=== PATIENT | female | born 1945 | race Caucasian/White ===

== ENCOUNTER 2018-09-15 11:31 | Inpatient (IN) ==
[2018-09-15 19:08] LABS: BASO# 0.06 X1000 (0.0-0.2); BASO% 0.5 % (0.0-0.8); EOS# 0.06 X1000 (0.0-0.7); EOS% 0.5 % (0.0-10.0); HEMATOCRIT 41.5 % (37.0-47.0); HEMOGLOBIN 13.8 g/dL (12.0-16.0); IMM GRAN# 0.05 X1000 (0.0-0.04); IMM GRAN% 0.5 % (0.0-0.5); LYMPH# 3.23 X1000 (1.2-3.4); LYMPH% 29.3 % (20.5-51.1); MCH 27.5 PG (27-31); MCHC 33.3 g/dL (33-37); MCV 82.7 FL (81-99); MONO# 0.62 X1000 (0.11-0.59); MONO% 5.6 % (1.7-9.3); MPV 10.1 FL (7.4-10.4); NEUT# 6.99 X1000 (1.4-6.5); NEUT% 63.6 % (42.2-75.2); PLT 332 X1000 (130-400); RBC 5.02 XMIL (4.2-5.4); RDW 15.9 % (11.5-14.5); WBC 11.01 X1000 (4.8-10.8)
[2018-09-15 19:31] LABS: AGAP 16; ALB/GLOB RATIO 1.1; ALKALINE PHOSPHATASE 121 U/L (32-104); BUN 15 mg/dL (8-22); CALCIUM 8.1 mg/dL (8.8-10.2); CHLORIDE 109 mmol/L (98-107); COSMO 287; CREATININE 0.6 mg/dL (0.5-0.9); ESTIMATED GFR > 60; GLUCOSE 82 mg/dL (70-104); GOT 20 U/L (10-30); GPT 20 U/L (10-36); POTASSIUM 3.1 mmol/L (3.5-5.1); SODIUM 144 mmol/L (136-145); TCO2 19 mmol/L (25-35); TOTAL BILIRUBIN 0.68 mg/dL (0.20-1.00); TOTAL PROTEIN 7.7 g/dL (6.3-8.3)
[2018-09-15] MEDS ORDERED: POTASSIUM CHLORIDE 20 MEQ/SWI 20 MEQ/100 ML IVPB IV ONE (21:44)
[2018-09-15] MEDS ORDERED: KLOR-CON PO ONE (21:45)
[2018-09-15] MEDS ORDERED: ANTIVERT PO ONE (21:46)
--- NOTE | 2018-09-15 22:06 | Diag Imaging Result Doc PS360 ---
CT HEAD W/O CONTRAST - 09/15/2018 INDICATION: Dizziness COMPARISON: None FINDINGS: The ventricles and sulci are normal in size and contour. No intracranial mass or hemorrhage. There is moderate scattered cerebral white matter chronic microvascular disease that is mainly subcortical. There is near complete opacification of the right maxillary sinus. Other sinuses are clear. No skull fracture. IMPRESSION: No acute intracranial abnormality. Right maxillary sinusitis. This exam was performed using automated exposure control, adjustment of mA or kV according to patient size, and/or use of iterative reconstruction technique Electronically signed by Chago Sagastume 09/15/2018 10:04 PM
[2018-09-15] MEDS ORDERED: MAGNESIUM SULFATE 2 GM/S.W.I. 2 GM/50 ML IVPB IV ONE (22:35)
--- NOTE | 2018-09-15 22:59 | PROVIDER DOCUMENTATION ---
This chart was entered by Kristie Flores Scribe, acting as scribe for Aydin Cleveland MD. HPI-General Adult - General Chief Complaint: Dizziness Stated Complaint: DIZZY Time Seen by Provider: 09/15/18 21:37 Source: patient Allergies/Adverse Reactions: Patient Allergies Allergy/AdvReac Type Severity Reaction Status Date / Time Penicillins Allergy Mild RASH Verified 09/15/18 18:51 Home Medications: Home Medication List Medication Instructions Recorded Confirmed Last Taken Type Apixaban [Eliquis] 5 mg PO BID 08/15/15 09/15/18 01/21/18 History Budesonide [Budesonide EC] 3 mg PO BID 08/15/15 01/26/18 01/25/18 History Cyanocobalamin (Vitamin B-12) 1 each IM DIRECTED 08/15/15 09/15/18 01/02/18 History [Cyanocobalamin Injection] Digoxin [Lanoxin] 0.125 mcg PO DAILY 08/15/15 09/15/18 01/26/18 04:35 History Magnesium Oxide 800 mg PO QAM 08/15/15 09/15/18 01/25/18 History Multivitamins/Minerals [Centrum 1 each PO DAILY 08/15/15 01/26/18 01/25/18 History Silver] Paroxetine HCl 30 mg PO DAILY 08/15/15 09/15/18 01/25/18 History Sotalol HCl [Sotalol] 80 mg PO BID 08/15/15 09/15/18 01/26/18 04:35 History Potassium Chloride E.r. [Klor-Con] 10 meq PO TID #0 08/17/15 09/15/18 01/25/18 Rx Mesalamine [Apriso] 0.375 gm PO 4XDAY 01/19/18 01/26/18 01/25/18 History Pantoprazole [Protonix] 40 mg PO DAILY@0700 01/19/18 09/15/18 01/25/18 History Docusate Sodium [Colace] 100 mg PO BID #30 capsule 01/28/18 Unknown Rx Hydrocodone/APAP 7.5 mg/325 mg 1 each PO Q6H PRN PRN #20 tablet 01/28/18 Unknown Rx [[place]-7.5] Ondansetron HCl [Zofran] 4 mg PO Q4H PRN PRN #10 tablet 01/28/18 Unknown Rx Budesonide [Budesonide EC] 3 mg PO DIRECTED 09/15/18 09/15/18 Unknown History Ferrous Sulfate [Ferosul] 325 mg PO DIRECTED 09/15/18 09/15/18 Unknown History Mesalamine [Apriso] 0.375 gm PO DIRECTED 09/15/18 09/15/18 Unknown History - History of Present Illness -Gen Adult Nature of Presenting Problems: 72 yof presents to ED with dizziness, spinning feeling, tingly in hands and cold like symptoms. Pt states vision is also a little blurry with the dizziness. Pt denies LOC, vomiting, headache, SOB or weakness. Pt states great grandson has been sick. Review of Systems - Adult - REVIEW OF SYSTEMS - ADULT Constitutional: reports: see HPI, fatique. denies: chills, fever Eyes: reports: no symptoms reported Ears, Nose, Mouth & Throat: reports: see HPI, sinus problem Cardiovascular: reports: no symptoms reported Respiratory: reports: no symptoms reported Gastrointestinal: reports: no symptoms reported Genitourinary: reports: no symptoms reported Musculoskeletal: reports: no symptoms reported Integumentary: reports: no symptoms reported Neurological: reports: see HPI, dizziness/vertigo, paresthesia. denies: headache/migraines, loss of balance, syncope Psychiatric: reports: no symptoms reported Endocrine: reports: no symptoms reported Hematologic/Lymphatic: reports: no symptoms reported Allergic/Immunologic: reports: no symptoms reported All Other Systems: Reviewed and Negative Past History - Adult - PAST MEDICAL HISTORY-ADULT Review of Records: reports: Nursing Assessment Review, Medications Reviewed, Social history reviewed & non-contributory. Major Childhood Illnesses: reports: denies history Cardiovascular: reports: A-Fib, murmur Respiratory: reports: denies history Gastrointestinal: reports: Crohn's Obstetrical/Gynecological: reports: denies history Genitourinary: reports: chronic UTI's Musculoskeletal: reports: denies history Neurological: reports: denies history Endocrine/Immune: reports: denies history Other Conditions: reports: denies history - PRIOR SURGERIES/PROCEDURES Surgical/Procedure History: reports: bowel surgery (bowel resections due to crohn's) - IMMUNIZATION STATUS Childhood Immunizations: See Nurse Assessment Flu Vaccine: See Nurse Assessment - FAMILY HISTORY Family History: reviewed, not pertinent - SOCIAL HISTORY Smoking: quit greater than 1 year Physical Exam-General - PHYSICAL EXAM-ADULT Initial Vital Signs Reviewed: Yes - CONSTITUTIONAL General Appearance: appears well, alert, no apparent distress. negative: anxious, combative - EYES Eyes: PERRL/EOMI, pink conjunctivae. negative: photophobia, sunken eyes - HEAD, EARS, NOSE, MOUTH & THROAT HENMT: normocephalic/atraumatic, moist mucous membranes, normal ENT inspection. negative: frontal tenderness, maxillary tenderness - NECK Neck: non-tender, full range of motion, supple, normal inspection. negative: Brudzinski's sign, carotid bruit - RESPIRATORY Respiratory: chest non-tender, lungs clear, normal breath sounds, no pleuratic chest pain, no respiratory distress, no accessory muscle use. negative: crackl es, rales, rhonchi - CARDIOVASCULAR Cardiovascular: normal peripheral pulses, regular rate, rhythm, no edema, no gallop, no JVD, no murmur. negative: bradycardia, tachycardia - GASTROINTESTINAL (ABDOMEN) Abdominal Exam: normal bowel sounds, non tender, soft. negative: rigid, rebound, tenderness - LYMPHATIC Lymphatic: no adenopathy. negative: striations - MUSCULOSKELETAL Back Exam: normal inspection, no CVA tenderness. negative: ecchymosis, swelling Extremity: normal range of motion, non-tender, normal gait, normal inspection. negative: swelling, tenderness - SKIN Integumentary: normal color, normal turgor, warm/dry. negative: erythema, jaund ice - NEUROLOGIC Neurologic: aging box hand II-XII nml as tested, grossly normal. negative: facial droop, focal weakness - PSYCHIATRIC Psych/Mental Status: normal mood/affect, normal thought content, normal thought process, oriented x 3 Progress - PLAN OF CARE/RESULTS Progress/Plan/Lab Results: Vital Signs - 8 hr 09/15/18 18:12 Pulse Rate 60 Respiratory Rate 20 Blood Pressure 161/73 O2 Sat by Pulse Oximetry 100 Laboratory Results - last 24 hr 09/15/18 09/15/18 18:48 18:48 WBC 11.01 H RBC 5.02 Hgb 13.8 Hct 41.5 MCV 82.7 MCH 27.5 MCHC 33.3 RDW Std Deviation 15.9 H Plt Count 332 MPV 10.1 Immature Gran % (Auto) 0.5 Neut % (Auto) 63.6 Lymph % (Auto) 29.3 [place] % (Auto) 5.6 Eos % (Auto) 0.5 Baso % (Auto) 0.5 Immature Gran # (Auto) 0.05 H Neut # (Auto) 6.99 H Lymph # (Auto) 3.23 [place] # (Auto) 0.62 H Eos # (Auto) 0.06 Baso # (Auto) 0.06 Sodium 144 Potassium 3.1 L Chloride 109 H Carbon Dioxide 19 L Anion Gap 16 BUN 15 Creatinine 0.6 Estimated GFR/1.73 m2 > 60 BUN/Creatinine Ratio 25 Glucose 82 Calculated Osmolality 287 Calcium 8.1 L Total Bilirubin 0.68 AST 20 ALT 20 Alkaline Phosphatase 121 H Total Protein 7.7 Albumin 4.0 Globulin 3.7 Albumin/Globulin Ratio 1.1 Orders Category Date Time Status CBC WITH DIFF [HEME] Stat Lab 09/15/18 18:48 Completed COMPREHENSIVE METABOLIC PANEL [CHEM] Stat Lab 09/15/18 18:48 Completed URINALYSIS W/POSS RFLX CULT [URINALYSIS] Stat Lab 09/15/18 21:13 Uncollected EKG [EKG] Stat Ther 09/15/18 18:48 Ordered Result Diagrams: 09/15/18 18:48 09/15/18 18:48 - EKG 1 Time of EKG reading by physician:: 18:48 EKG Read and Signed by:: Obey Del Castillo EKG Interpretation (*Must complete 3 of following elements*): Normal Rate: 62 Rhythm: normal sinus Welsh: normal QRS: normal ST Wave: normal - CT/MRI 1 CT Results: No acute intracranial findings. MAxillary sinusitis. Impression: See EMR Report (CT HEAD W/O CONTRAST - 09/15/2018 INDICATION: Dizziness COMPARISON: None FINDINGS: The ventricles and sulci are normal in size and contour. No intracranial mass or hemorrhage. There is moderate scattered cerebral white matter chronic microvascular disease that is mainly subcortical. There is near complete opacification of the right maxillary sinus. Other sinuses are clear. No skull fracture. IMPRESSION: No acute intracranial abnormality. Right maxillary sinusitis. This exam was performed using automated exposure control, adjustment of mA or kV according to patient size, and/or use of iterative reconstruction technique Electronically signed by Chago Sagastume 09/15/2018 10:04 PM) Departure - Departure Date of Disposition Decision: 09/15/18 Time of Disposition Decision: 21:36 DIAGNOSIS: Hypomagnesemia, Hypokalemia, Dizziness Disposition: ADMITTED INPATIENT 09 Certified Medical Emergency: Emergent Condition: Stable Referrals and Follow-Ups: Catrachito Avelar MD [Primary Care Provider] - - Critical Care Note This patient required my direct & personal management of CC.: No Attestation - Physician/ ARELI Attestation Patient care was provided by Advanced Practice Provider:: No The physician spent face to face time with patient:: Yes Advanced Practice Provider documentation review:: Supervising physician onsite and consulted in the evaluation and care of this patient. The physician did have a face to face encounter with the patient. This chart was documented by the indicated scribe, (Kristie Flores Scribe) and accurately reflects the services I performed and decisions made by me, Aydin Cleveland MD, as attested by the provider's signature.
[2018-09-15] MEDS ORDERED: NORCO-7.5 PO PRN (23:20)
[2018-09-15] MEDS ORDERED: ENTOCORT EC PO SCH (23:30)
[2018-09-15] MEDS ORDERED: FERROUS SULFATE PO SCH (23:30)
[2018-09-15 23:37] LABS: URINE SOURCE CLEAN CATCH
--- NOTE | 2018-09-15 23:53 | HISTORY AND PHYSICAL ---
PRIMARY CARE PHYSICIAN: Dr. Avelar. PRESENTING COMPLAINT: Dizziness. HISTORY OF PRESENTING COMPLAINT: Ms Ball is a 72-year-old female with history of Crohn disease, status post multiple abdominal surgeries, atrial fibrillation, cardiac arrhythmia, situational depression. According to her, she has been having a lot of diarrhea on a daily basis, which for most part is regular in her, but yesterday she had about 6 and this morning she had 3. Subsequently, she has been feeling dizzy, especially whenever she gets up. Early this morning when she woke up, she felt so dizzy that she had to go and sit down, and even upon sitting down, she felt like the place was spinning. She says she has had this before and most time is because her electrolytes have been out of control. She came to the emergency department, where she was evaluated and was found to have a magnesium of 0.6. We were consulted to admit for electrolytes management and also for dizziness. PAST MEDICAL HISTORY: 1. Atrial fibrillation. 2. Electrolytes abnormality 3. Crohn disease. 4. Situational depression. HOME MEDICATIONS: 1. Magnesium 800 p.o. daily. 2. Sotalol 80 mg b.i.d. 3. Digoxin 0.125 daily. 4. Apixaban 5 mg b.i.d. 5. Cyanocobalamin. 6. Mesalamine 0.375 four times per day. 7. Iron sulfate. ALLERGIES: None. FAMILY HISTORY: Unremarkable. SOCIAL HISTORY: Patient is a , lives with a disabled son. Denies any alcohol, substance abuse, or tobacco. REVIEW OF SYSTEMS: Fourteen-point review of system conducted with Ms. Flannery, unremarkable except what we have in the HPI. PHYSICAL EXAM: VITAL SIGNS: Blood pressure is 184/70, pulse 63, respiration is 18, temperature 97.4 degrees. GENERAL: Ms. Ball is a 72 years ago female, she is in bed. She does not seem to be in any cardiopulmonary distress. HEENT: Mucosa is pink and dry. Anicteric. Acyanotic. Head is normocephalic and atraumatic NECK: Supple. No JVD. RESPIRATORY SYSTEM: There is good air entry bilaterally. No crepitations. No rhonchi. No accessory muscle use. CARDIOVASCULAR: Regular rate and rhythm. There is a 2/6 murmur radiating to the neck. Ward beat is at 5th intercostal space, midclavicular line. GASTROINTESTINAL: Abdomen is soft. Bowel sounds are present. There is no hepatosplenomegaly. There is multiple scars on the anterior abdominal wall. EXTREMITIES: No pedal edema. Distal pulses are present. CONSULTING PRACTICE MANAGER: Patient is awake, alert, oriented x4. There is no focal neurological deficit. Motor is 5/5 in all extremities. Sensation is intact. Cranial nerves 2-12 have been grossly examined and they are unremarkable. PSYCHIATRIC: The patient is very cooperative. Good insight and judgment. MOUTH: Poor dentition noted. LABORATORY DATA: WBC is 11.01, hemoglobin is 13.8, platelet count of 332,000. Chemistry is also reviewed, potassium is 3.1, chloride is 106, bicarb is 19. IMAGING STUDIES: A CT scan of the head showed no acute intracranial pathology. EKG seen. ASSESSMENT: 1. Orthostatic dizziness, likely due to volume depletion. We are going to check orthostatic vitals and hydrate the patient adequately. 2. Electrolyte abnormality, including severe hypomagnesemia and hypokalemia, likely secondary to gastrointestinal loss. We will replace this and repeat it accordingly. 3. Non-gap metabolic acidosis, likely due to gastrointestinal losses. 4. Clinical volume depletion. Patient will continue with IV fluids. 5. History of Crohn disease. 6. Atrial fibrillation currently rate controlled. We will continue with her home medications. PLAN: In general, Ms. Ball is going to be admitted to the medical floor under tele monitoring. We are going to replace all the electrolyte abnormalities and repeat them for tomorrow morning. We will do orthostatic vitals now and repeat them in the morning. We will also continue adequate IV hydration. Ms Ball will be transferred to Dr. Avelar's service tomorrow morning, since that is her PCP. The plan has been discussed with Ms. Ball and she voices understanding. cc: Israel Avila MD
[2018-09-15 23:55] LABS: BILIRUBIN URINE NEGATIVE (NEGATIVE); BLOOD URINE NEGATIVE (NEGATIVE); COLOR ORANGE; GLUCOSE URINE NEGATIVE (NEGATIVE); KETONE URINE NEGATIVE (NEGATIVE); LEUKOCYTES URINE LARGE (NEGATIVE); NITRITE URINE NEGATIVE (NEGATIVE); PROTEIN URINE TRACE mg/dL (NEGATIVE); SP GRAVITY URINE 1.007; TURBIDITY URINE TURBID (CLEAR); UROBILINOGEN URINE NORMAL (NORMAL)
[2018-09-16 00:02] LABS: UR EPITHELIAL CELLS >10 /HPF (<10); URINE BACTERIA 4+ /HPF; URINE RBC TNTC /HPF (<10); URINE WBC TNTC /HPF (<10)
[2018-09-16 00:13] LABS: URINE CASTS NONE SEEN; URINE CRYSTALS NONE SEEN; URINE SMALL ROUND CELLS NONE SEEN; URINE YEAST PRESENT
[2018-09-16] MEDS: NS 1,000 ML IV SCH ×3 (01:45→21:27)
[2018-09-16] MEDS: PROTONIX PO SCH (06:07)
[2018-09-16] MEDS ORDERED: MAGNESIUM SULFATE 2 GM/S.W.I. 2 GM/50 ML IVPB IV ONE (06:53)
--- NOTE | 2018-09-16 07:18 | PROGRESS NOTE ---
DATE: 09/16/2018 SUBJECTIVE: Ms Ball is a 72-year-old white female patient admitted with significant diarrhea, dizziness, vertigo, electrolyte abnormality. The patient does have history of atrial fibrillation, Crohn disease, gastritis, cardiac arrhythmia. The patient received IV hydration, magnesium and potassium supplement. The patient is feeling some better. She denied any chest pain or palpitations. No nausea or vomiting. Denied any abdominal pain. Her headache is better. Admission history and physical noted. PAST MEDICAL HISTORY: Reviewed. MEDICATIONS: Reviewed. PHYSICAL EXAMINATION: Vital signs: Blood pressure 119/44, pulse 62, respiration 18, temperature 97.7 degrees. Skin: No rash or petechiae. HEENT: Atraumatic, normocephalic. [place] conjunctivae. Anicteric sclerae. Extraocular muscle movement normal. Fundus cannot be penetrated. Good oral hygiene. No tonsillopharyngeal congestion or exudate. Ears and nose benign. Neck: Supple. No JVD, thyromegaly or lymphadenopathy. Chest: Bilateral good air entry present. Cardiovascular: S1 and S2 heard. 2/6 systolic murmur at the apex. Abdomen: Soft, nontender. Bowel sounds present. FIBER DESIGNER: Alert, awake and able to move all 4 limbs. LABORATORY DATA: Done on admission, potassium was 3.1, magnesium was 0.6. Urinalysis did reveal significant UTI. CONSIDERATION: 1. Electrolyte abnormality in the form of hypomagnesemia and hypokalemia. 2. Profuse diarrhea. 3. Crohn disease. 4. Urinary tract infection. 5. Paroxysmal atrial fibrillation. 6. Hypertension. PLAN: We will supplement electrolytes appropriately. Check appropriate labs. Continue home medicine. Close observation. Overall plan discussed with the patient and she is in agreement. cc: Catrachito Avelar MD
--- NOTE | 2018-09-16 08:01 | EKG Report ---
Test Performed on : 09/15/2018 6:48:21 PM Test Reason : dizziness Blood Pressure : / mmHG Vent. Rate : 062 BPM Atrial Rate : 062 BPM P-R Int : 132 ms QRS Dur : 068 ms QT Int : 422 ms P-R-T Axes : 075 018 009 degrees QTc Int : 428 ms Normal sinus rhythm. Normal ECG When compared with ECG of 15-AUG-2015 09:00, Sinus rhythm. has replaced Junctional rhythm. Unconfirmed Result
[2018-09-16 08:17] LABS: AGAP 11; ALBUMIN 3.2 g/dL (3.5-5.0); ALKALINE PHOSPHATASE 100 U/L (32-104); BUN 12 mg/dL (8-22); CALCIUM 7.3 mg/dL (8.8-10.2); CHLORIDE 115 mmol/L (98-107); COSMO 287; CREATININE 0.5 mg/dL (0.5-0.9); ESTIMATED GFR > 60; GLUCOSE 72 mg/dL (70-104); GOT 16 U/L (10-30); GPT 17 U/L (10-36); MAGNESIUM 1.4 mg/dL (1.5-2.7); POTASSIUM 3.1 mmol/L (3.5-5.1); SODIUM 145 mmol/L (136-145); TCO2 19 mmol/L (25-35); TOTAL BILIRUBIN 0.44 mg/dL (0.20-1.00); TOTAL PROTEIN 6.3 g/dL (6.3-8.3)
[2018-09-16 08:20] LABS: BASO# 0.04 X1000 (0.0-0.2); BASO% 0.5 % (0.0-0.8); EOS# 0.11 X1000 (0.0-0.7); EOS% 1.4 % (0.0-10.0); HEMATOCRIT 32.9 % (37.0-47.0); HEMOGLOBIN 10.7 g/dL (12.0-16.0); IMM GRAN# 0.05 X1000 (0.0-0.04); IMM GRAN% 0.6 % (0.0-0.5); LYMPH# 2.88 X1000 (1.2-3.4); LYMPH% 36.4 % (20.5-51.1); MCHC 32.5 g/dL (33-37); MCV 83.1 FL (81-99); MONO# 0.66 X1000 (0.11-0.59); MONO% 8.3 % (1.7-9.3); MPV 9.5 FL (7.4-10.4); NEUT# 4.18 X1000 (1.4-6.5); NEUT% 52.8 % (42.2-75.2); PLT 348 X1000 (130-400); RBC 3.96 XMIL (4.2-5.4); RDW 15.5 % (11.5-14.5); WBC 7.92 X1000 (4.8-10.8)
[2018-09-16] MEDS: COLACE PO SCH ×2 (10:43→21:25)
[2018-09-16] MEDS: PAXIL PO SCH (10:47)
[2018-09-16] MEDS: BETAPACE PO SCH ×2 (10:47→21:25)
[2018-09-16] MEDS: ENTOCORT EC PO SCH ×2 (10:47→21:25)
[2018-09-16] MEDS: MAG-OX PO SCH (10:48)
[2018-09-16] MEDS: ELIQUIS PO SCH ×2 (10:48→21:25)
[2018-09-16] MEDS: LANOXIN PO SCH (10:48)
[2018-09-16] MEDS: CENTRUM SILVER PO SCH (10:48)
[2018-09-16] MEDS: KLOR-CON PO SCH ×3 (10:48→21:25)
[2018-09-16] MEDS: MESALAMINE 0.375 GM PO SCH ×4 (10:51→21:24)
[2018-09-16] MEDS: POTASSIUM CHLORIDE 20 MEQ/SWI 20 MEQ/100 ML IVPB IV SCH ×2 (12:28→14:10)
[2018-09-16] MEDS: SEPTRA DS PO SCH ×2 (12:28→21:25)
[2018-09-17] MEDS: PROTONIX PO SCH (06:34)
--- NOTE | 2018-09-17 06:53 | DISCHARGE SUMMARY ---
ADMISSION DATE: 09/15/2018 DISCHARGE DATE: FINAL DISCHARGE DIAGNOSES: 1. Gastroenteritis and volume depletion. 2. Hypomagnesemia and hypokalemia. 3. Nonanion gap metabolic acidosis. 4. Crohn disease. 5. Atrial fibrillation. 6. Situational depression. 7. Iron-deficiency anemia. HISTORY AND HOSPITAL COURSE: Ms Ball is a 72-year-old white female patient admitted with significant diarrhea not responding to her usual treatment. The patient was getting weak and dizzy. When patient came to the emergency room, the patient was volume depleted, found to have significant electrolyte abnormalities with severe hypomagnesemia and hypokalemia. The patient did have clinical dehydration. The patient was treated with IV fluid. We replenish her magnesium and potassium. Her clinical condition improved. The patient is feeling much better. She was tolerating her food well. Her weakness improved. Denied any diarrhea. I did stool workup, which was negative for C difficile toxin and WBC. The patient denied any fever or chills. Her urine showed UTI, culture result is pending. I started patient on Bactrim DS, which she was tolerating it well. No chest pain, palpitation. No unusual cough or expectoration. DISCHARGE PHYSICAL EXAMINATION: Vital signs: Her vital signs noted. Neck: Supple. No JVD. Lungs: Bilateral good air entry present. Cardiovascular system: S1 and S2 heard. 2/6 systolic murmur at the apex. Abdomen: Soft, nontender. Bowel sounds present. OUTSIDE PHYSICAL DAMAGE APPRAISER: Alert, awake, able to move all 4 limbs. DISCHARGE INSTRUCTIONS: Overall patient received maximum benefit of hospitalization. I am going to recheck her blood work. Clinically, patient is doing better. After reviewing her lab I am planning to discharge her home. Plenty of liquids orally. Continue home medicine. New prescription of Bactrim DS given. Follow up in the office in 4 to 5 days. In case of more distress, call us back or go to emergency room. cc: Catrachito Avelar MD
[2018-09-17 07:33] LABS: BASO# 0.05 X1000 (0.0-0.2); BASO% 0.6 % (0.0-0.8); EOS# 0.11 X1000 (0.0-0.7); EOS% 1.3 % (0.0-10.0); HEMATOCRIT 35.5 % (37.0-47.0); HEMOGLOBIN 11.3 g/dL (12.0-16.0); IMM GRAN# 0.02 X1000 (0.0-0.04); IMM GRAN% 0.2 % (0.0-0.5); LYMPH# 2.65 X1000 (1.2-3.4); LYMPH% 31.4 % (20.5-51.1); MCH 27.2 PG (27-31); MCHC 31.8 g/dL (33-37); MCV 85.3 FL (81-99); MONO# 0.71 X1000 (0.11-0.59); MONO% 8.4 % (1.7-9.3); MPV 9.5 FL (7.4-10.4); NEUT# 4.91 X1000 (1.4-6.5); NEUT% 58.1 % (42.2-75.2); PLT 317 X1000 (130-400); RBC 4.16 XMIL (4.2-5.4); WBC 8.45 X1000 (4.8-10.8)
[2018-09-17 08:06] LABS: AGAP 9; ALB/GLOB RATIO 1.1; ALBUMIN 3.2 g/dL (3.5-5.0); ALKALINE PHOSPHATASE 98 U/L (32-104); BUN 14 mg/dL (8-22); CALCIUM 7.5 mg/dL (8.8-10.2); CHLORIDE 116 mmol/L (98-107); COSMO 288; CREATININE 0.7 mg/dL (0.5-0.9); ESTIMATED GFR > 60; GLUCOSE 75 mg/dL (70-104); GOT 15 U/L (10-30); GPT 14 U/L (10-36); MAGNESIUM 1.6 mg/dL (1.5-2.7); SODIUM 145 mmol/L (136-145); TCO2 20 mmol/L (25-35); TOTAL BILIRUBIN 0.31 mg/dL (0.20-1.00); TOTAL PROTEIN 6.2 g/dL (6.3-8.3)
[2018-09-17] MEDS: PAXIL PO SCH (09:58)
[2018-09-17] MEDS: LANOXIN PO SCH (09:59)
[2018-09-17] MEDS: KLOR-CON PO SCH (09:59)
[2018-09-17] MEDS: ELIQUIS PO SCH (09:59)
[2018-09-17] MEDS: MAG-OX PO SCH (09:59)
[2018-09-17] MEDS: ENTOCORT EC PO SCH (09:59)
[2018-09-17] MEDS: CENTRUM SILVER PO SCH (10:00)
[2018-09-17] MEDS: SEPTRA DS PO SCH (10:00)
[2018-09-17] MEDS: COLACE PO SCH (10:00)
[2018-09-17] MEDS: BETAPACE PO SCH (10:00)
[2018-09-17] MEDS: MESALAMINE 0.375 GM PO SCH (10:03)
[2018-09-17 12:04] VITALS: BP 137/57
[2018-10-03] MEDS ORDERED: CYANOCOBALAMIN IM SCH (23:30)
== END 2018-09-17 14:15 | disposition home or self-care (01) | DRG 641 ==
LOC: ED 11:31 → 3N 23:30 → SUATTDRO 23:30
PROVIDERS: ADMIT Internal Medicine; ATTEND Internal Medicine
CPT/HCPCS: 70450; 80053; 81001; 82948; 83735; 84443; 85025; 87088; 87205; 87324; 89055; 93005; 96365; 96366; 96368; 97162; 97530; 99285; A9270; J3475; J3480; J7030; XXXXX